=== PATIENT | female | born 1965 | race Caucasian/White ===

== ENCOUNTER 2018-03-24 00:04 | Emergency (ER) | payer OTHER ==
[~2018-03-24] VITALS: Ht 160 cm; Wt 59.0 kg
[2018-03-24] MEDS ORDERED: SYNTHROID112 MCG (00:18)
[2018-03-24] MEDS ORDERED: SYMBICORT 16010.2 GM IH (02:37)
[2018-03-24] MEDS ORDERED: ALBUTEROL2.5 MG/3 M IH (02:37)
== END 2018-03-24 03:19 | disposition home or self-care (01) ==
LOC: ER 00:04
DX: J40 Bronchitis, not specified as acute or chronic (principal)